=== PATIENT | male | born 1970 | race American Indian/Alaskan Native ===

== ENCOUNTER 2020-03-18 09:37 | Outpatient (CLI) | payer OTHER, SELFPAY ==
[2020-03-18 09:47] LABS: Basophils Absolute Auto 0.04 K/mm3 (0.00-0.10); Basophils Percent Auto 0.6 % (0.0-1.0); Eosinophils Absolute Auto 0.24 K/mm3 (0.02-0.50); Eosinophils Percent Auto 3.5 % (1.0-6.0); Hematocrit 45.7 % (40.0-54.0); Hemoglobin 15.8 g/dL (14.0-18.0); Immature Granulocyte Absolute 0.03 K/mm3 (0.00-0.00); Immature Granulocyte Percent A 0.4 % (0.0-0.0); Lymphocytes Absolute Auto 3.22 K/mm3 (1.10-4.50); Lymphocytes Percent Auto 46.9 % (18.0-42.0); Mean Corpuscular HGB Conc 34.6 g/dL (32.0-36.0); Mean Corpuscular Hemoglobin 29.4 pg (27.0-31.0); Mean Corpuscular Volume 85.1 fL (78.0-102.0); Mean Platelet Volume 9.7 fl (8.7-11.0); Monocytes Absolute Auto 0.49 K/mm3 (0.10-0.90); Monocytes Percent Auto 7.1 % (2.0-11.0); Neutrophils Absolute Auto 2.9 K/mm3 (1.7-7.2); Neutrophils Percent Auto 41.5 % (50.0-70.0); Platelet Count Result 213 K/mm3 (150-420); Red Blood Count 5.37 M/mm3 (4.70-6.10); Red Cell Distribution Width 12.1 % (11.6-14.4); White Blood Count 6.9 K/mm3 (4.8-10.8)
[2020-03-18 10:43] LABS: Alanine Aminotransferase 26 U/L (16-63); Albumin Level 3.8 g/dL (3.4-5.0); Alkaline Phosphatase 50 U/L (46-116); Anion Gap 12.2 mmol/L (7-16); Aspartate Amino Transferase 18 U/L (15-37); Bilirubin,Total 0.4 mg/dL (0.00-1.00); Blood Urea Nitrogen 15 mg/dL (7-18); Calcium 8.7 mg/dL (8.5-10.1); Carbon Dioxide 30 mmol/L (21-32); Chloride 106 mmol/L (98-108); Cholesterol 219 mg/dL (0-200); Estimated Glomerular Filt Rate > 60; Glucose 93 mg/dL (70-99); HDL Direct 43 mg/dL (40-60); LDL Cholesterol Calculated 152 mg/dL (<130); Osmolality Calculated 298 mOsm/kg (285-295); Potassium 4.2 mmol/L (3.5-5.1); Sodium 144 mmol/L (136-145); Total Protein 7.2 g/dL (6.4-8.2); Triglycerides 122 mg/dL (0-150)
== END 2020-03-18 09:38 | disposition home or self-care (01) ==
LOC: CHSLAB 09:40
PROVIDERS: PCP Nurse Practitioner Family; Visit Provider Nurse Practitioner Family
DX: Z00.00 Encounter for general adult medical examination without abnormal findings (principal); I10 Essential (primary) hypertension
CPT/HCPCS: 36415; 80053; 80061; 85025

== ENCOUNTER 2022-01-23 23:43 | Emergency (ER) | payer OTHER, SELFPAY ==
--- NOTE | ~2022-01-23 | CT_ITS ---
EXAMINATION: CTA chest PE protocol DATE: 01/24/2022 09:22 CDT INDICATION: Sternal chest pain. Elevated d-dimer. TECHNIQUE: Computed tomographic angiography (CTA) of the chest was performed with 100 mL Omnipaque-35 0 intravenous contrast. The dose-length product was 1055.75 mGy-cm. Maximum intensity projection 3D-r econstructions of the aorta and other arteries were constructed by the technologist on a separate wor kstation. COMPARISON: Chest x-ray dated 01/23/2021. FINDINGS: Study is technically adequate without evidence for pulmonary embolism. No thoracic lymphade nopathy. No significant pleural or pericardial effusion. Heart size normal. Gallstones are present. O therwise, upper abdomen is unremarkable. No endobronchial lesions. No pneumothorax. No focal airspace consolidation. IMPRESSION: 1. No acute cardiopulmonary disease. 2: No evidence for pulmonary embolism. 3: Cholelithiasis. Reviewed, dictated and finalized at location A.
--- NOTE | ~2022-01-23 | XR_ITS ---
EXAMINATION: XR chest 2V 01/24/2022 00:03 INDICATION: Sternal chest pain. Elevated d-dimer. PROCEDURE: 2 view chest COMPARISON: 01/10/2012 FINDINGS: The lungs are clear. The cardiomediastinal silhouette is within normal limits. There are no pleural effusions. There is no pneumothorax suspected. IMPRESSION: 1: NO ACUTE CARDIOPULMONARY DISEASE. Reviewed, dictated and finalized at location A.
[2022-01-23 23:48] VITALS: BP 163/101; PULSE 74; RESP 18; TEMP 36.3; O2SAT 99
--- NOTE | 2022-01-23 23:50 | ECG_ITS ---
Measurements Intervals [place] Rate: 74 P: 49 RI: 158 QRS: -24 QRSD: 121 T: 30 QT: 419 QTc: 466 Interpretive Statements SINUS RHYTHM WITH FREQUENT VENTRICULAR PREMATURE COMPLEXES LEFT ANTERIOR FASCICULAR BLOCK MODERATE INTRAVENTRICULAR CONDUCTION DELAY [110+ ms QRS DURATION] ABNORMAL ECG NO PREVIOUS ECG AVAILABLE FOR COMPARISON Electronically Signed On 01-24-2022 12:36:00 CDT by Nav Olivares M.D.
[2022-01-23 23:53] VITALS: PULSE 61
--- NOTE | 2022-01-24 00:01 | PC.NURSE ---
Pt to XRAY via stretcher at this time.
[2022-01-24 00:12] LABS: Basophils Percent Auto 0.4 % (0.2-1.2); Eosinophils Absolute Auto 0.1 K/mm3 (0-0.3); Eosinophils Percent Auto 1.4 % (0-4.4); Hematocrit 45.5 % (42.0-52.0); Hemoglobin 15.5 g/dL (14.0-18.0); Immature Granulocyte Absolute 0.04 K/mm3 (0.00-0.031); Immature Granulocyte Percent A 0.4 % (0-0.5); Lymphocytes Absolute Auto 5.11 K/mm3 (0.9-3.2); Lymphocytes Percent Auto 50.6 % (18.3-44.2); Mean Corpuscular HGB Conc 34.1 g/dl (32-36); Mean Corpuscular Hemoglobin 29.5 pg (26-34); Mean Corpuscular Volume 86.7 fl (80-100); Mean Platelet Volume 9.9 fl (7.4-10.4); Monocytes Absolute Auto 0.6 K/mm3 (0.1-0.6); Monocytes Percent Auto 6.3 % (2.6-8.5); Neutrophils Absolute Auto 4.1 K/mm3 (1.3-6.7); Neutrophils Percent Auto 40.9 % (45.5-73.1); Platelet Count Result 244 k/mm3 (150-375); Red Blood Count 5.25 M/mm3 (4.6-6.20); Red Cell Distribution Width 12.9 % (11.5-14.5); White Blood Count 10.1 K/mm3 (4.5-10.0)
[2022-01-24 00:17] LABS: Potassium 3.4 mmol/L (3.4-5.0)
[2022-01-24 00:22] LABS: Prothrombin Time 13.2 Seconds (11.1-14.7)
[2022-01-24 00:23] LABS: Partial Thromboplastin Time 27.5 SECONDS (22.3-36.8)
[2022-01-24 00:29] LABS: Troponin I 0.013 ng/mL (0.000-0.034)
[2022-01-24 00:34] LABS: Alanine Aminotransferase 21 U/L (4-50); Albumin Level 4.4 g/dL (3.5-5.1); Alkaline Phosphatase 54 U/L (38-126); Anion Gap 8 mmol/L (8-16); Aspartate Amino Transferase 31 U/L (17-59); Bilirubin,Total 0.4 mg/dL (0.2-1.3); Blood Urea Nitrogen 21 mg/dL (9-20); Calcium 9.1 mg/dL (8.4-10.2); Carbon Dioxide 29 mmol/L (22-30); Chloride 103 mmol/L (98-107); Estimated CRCL calculation 95 ml/min; Estimated Glomerular Filt Rate > 60; Glucose 103 mg/dL (65-110); Lipase 176 U/L (23-300); Sodium 140 mmol/L (137-145)
--- NOTE | 2022-01-24 00:41 | ED.CHESTPAIN ---
HPI - Chest Pain General Chief Complaint: Chest Pain <Lisa Woodall PA-C - Last Filed: 01/24/22 03:45> Stated Complaint: Chest pain, dizziness, headache <Lisa Woodall PA-C - Last Filed: 01/24/22 03:45> Time Seen by Provider: 01/24/22 00:02 <Lisa Woodall PA-C - Last Filed: 01/24/22 03:45> Source: patient <ELI Gaytan Last Filed: 01/24/22 03:45> Mode of arrival: ambulatory <ELI Gaytan Last Filed: 01/24/22 03:45> Limitations: no limitations <ELI Gaytan Last Filed: 01/24/22 03:45> History of Present Illness HPI narrative: Patient is a 51-year-old male, with PMHx of AFIB, HTN, HLD, who presents to the ED with report of chest pain. Patient reports he has had intermittent episodes of mild lightheadedness since Tuesday, 01/22. He describes these as brief episodes, lasting seconds before resolving. No room spinning dizziness, otalgia, tinnitus, vision changes. Patient then developed chest pain around 5:30 PM last night. He describes this as a pressure in his midsternal chest, radiating into his left-sided chest and around to his back. His pain is still present currently in the ED bed, but is very mild in severity. He also reports having occasional headaches and intermittent palpitations, described as though his heart is skipping a beat. He denies any shortness of breath, nausea, vomiting, abdominal pain, cough, fever, chills, weakness, BLE pain or edema. Patient is a history of atrial fibrillation, which was diagnosed in 2009. He states he improved his health at that time and was eventually taken off his diltiazem. This was restarted around 3 months ago @ 120mg ER daily. His riffler tender is Dr. Fallon. He is not on any anticoagulation. He does take an ASA 81mg daily. <ELI Gaytan Last Filed: 01/24/22 03:45> Related Data Home Medications: Home Medications Medication Instructions Recorded Confirmed aspirin 81 mg tablet,delayed 81 mg PO DAILY 11/24/21 release diltiazem HCl 120 mg 120 mg PO DAILY 11/24/21 capsule,extended release 24 hr losartan 50 mg tablet 50 mg PO DAILY 11/24/21 <Lisa Woodall PA-C - Last Filed: 01/24/22 03:45> Allergies/Adverse Reactions: Allergies Allergy/AdvReac Type Severity Reaction Status Date / Time No Known Allergies Allergy Verified 01/23/21 12:51 <Lisa Woodall PA-C - Last Filed: 01/24/22 03:45> Review of Systems Review of Systems: CONSTITUTIONAL: Denies fever, chills, or sweats. EYES: Denies visual changes. ENT: Denies congestion, tinnitus, or otalgia. CARDIOVASCULAR: Reports chest pain and palpitations. Denies BLE edema. RESPIRATORY: Denies cough or dyspnea. GASTROINTESTINAL: Denies abdominal pain, nausea, vomiting, or diarrhea. MUSCULOSKELETAL: Reports back pain. Denies joint pain, BLE pain, or myalgia. NEUROLOGIC: Reports lightheadedness, headache. Denies numbness, or weakness. <Lisa Woodall PA-C - Last Filed: 01/24/22 03:45> All systems reviewed & are unremarkable except as noted in HPI and below <Lisa Woodall PA-C - Last Filed: 01/24/22 03:45> [facility] Past Medical History Medical History: Medical History Atrial fibrillation Body mass index (BMI) of 37.0 to 37.9 in adult History of being hospitalized x3 days atrial fibrillation HTN (hypertension) Hyperlipidemia <Lisa Woodall PA-C - Last Filed: 01/24/22 03:45> Surgical History Surgical History: Surgical History History of torn meniscus of right knee 2012 <Lisa Woodall PA-C - Last Filed: 01/24/22 03:45> Family History Family History: Family History (System 01/23/21 @ 12:51 by Alix Cook) Mother Glaucoma <Lisa Woodall PA-C - Last Filed: 01/24/22 03:45> Social History Social History: Social History
[2022-01-24 01:02] VITALS: BP 153/87; PULSE 61; RESP 20; O2SAT 98
[2022-01-24 01:12] LABS: D Dimer 0.86 ug/mL (<0.48)
[2022-01-24 02:25] VITALS: BP 150/102; PULSE 68; RESP 18; O2SAT 99
[2022-01-24 03:17] LABS: Troponin I < 0.012 ng/mL (0.000-0.034)
== END 2022-01-24 03:52 | disposition home or self-care (01) ==
PROVIDERS: Physician Assistant; Emergency Provider Emergency Medicine; PCP Nurse Practitioner Family
DX: R07.89 Other chest pain (principal); I49.3 Ventricular premature depolarization; I48.91 Unspecified atrial fibrillation; I10 Essential (primary) hypertension; E78.5 Hyperlipidemia, unspecified
CPT/HCPCS: 36415; 71046; 71275; 80053; 83690; 84484; 85025; 85380; 85610; 85730; 93005; 99284; Q9967

== ENCOUNTER 2022-12-07 03:43 | Emergency (ER) | payer OTHER, SELFPAY ==
[2022-12-07] VITALS (10 sets, daily range): BP systolic 162–163; BP diastolic 79–96; PULSE 61–86; RESP 13–22; TEMP 36.1; O2SAT 92–98
--- NOTE | ~2022-12-07 | CT_ITS ---
EXAMINATION: CT abdomen pelvis w con DATE: 12/07/2022 05:36 INDICATION: Upper abdominal pain radiating to the back. TECHNIQUE: Computed tomography (CT) of the abdomen and pelvis was performed with 100 mL Omnipaque 350 intravenous contrast. Automated exposure control and iterative reconstruction technique were employe d. The dose-length product was 1522.94 mGy-cm. COMPARISON: Chest CT 01/24/2022 FINDINGS: The visualized portions of the lung bases are clear without pneumonia or pleural effusion. The heart size is normal. No pericardial effusion. The liver and spleen are normal. The gallbladder i s normal in size and contains gallstones. The pancreas, adrenal glands, and left kidney normal. There is an 8 mm cyst in right kidney. The prostate is mildly enlarged. There is diverticulosis of the col on without evidence of diverticulitis. There are no dilated loops of bowel. The appendix is normal. T here are no pathologically enlarged lymph nodes. There is no free intraperitoneal fluid. There is mil d thoracolumbar spondylosis. IMPRESSION: 1. Cholelithiasis. No evidence of acute cholecystitis. Reviewed, dictated and finalized at location A. UNT DEVELOPMENT MANAGER
--- NOTE | 2022-12-07 03:59 | ED.ABDPAIN ---
HPI - Abdominal Pain General Chief Complaint: Abdominal Pain Stated Complaint: abd pain Time Seen by Provider: 12/07/22 03:53 History of Present Illness HPI narrative: Patient is a 52-year-old male presenting with abdominal pain. Patient states that he awoke from sleep with what felt like severe gas pain. Patient was able to have a normal bowel movement but the pain continued so he came in for evaluation. Currently, the patient states that the pain has significantly improved. States it is down to a 2 or 3. Declines pain medication at this time. He denies nausea or vomiting. Denies fevers or chills, headache, chest pain, shortness of breath, palpitations, diarrhea, dysuria, hematuria, flank pain. Related Data Home Medications Medication Instructions Recorded Confirmed aspirin 81 mg tablet,delayed 81 mg PO DAILY 11/24/21 12/08/22 release diltiazem HCl 120 mg 120 mg PO DAILY 11/24/21 12/08/22 capsule,extended release 24 hr Allergies Allergy/AdvReac Type Severity Reaction Status Date / Time No Known Allergies Allergy Verified 12/08/22 14:23 Review of Systems Review of Systems: All systems reviewed & are unremarkable except as noted in HPI and below PMFSH Past Medical History Medical History Atrial fibrillation Body mass index (BMI) of 37.0 to 37.9 in adult History of being hospitalized x3 days atrial fibrillation HTN (hypertension) Hyperlipidemia Surgical History Surgical History History of torn meniscus of right knee 2013 Family History Family History Mother Glaucoma Social History Social History Smoking status: Never smoker Tobacco type: cigarettes Alcohol intake: current Drinks per week: 1 Substance use: never Substance use type: does not use Living arrangements: with family Exam Narrative: GENERAL: Well-appearing, well-nourished, and in no acute distress. HEAD: Normocephalic, atraumatic. EYES: PERRLA and EOMI. ENT: Nares clear, no rhinorrhea or epistaxis. Mucous membranes moist. NECK: Supple. CHEST: Clear to auscultation. No respiratory distress. HEART: Regular rate and rhythm. No murmur heard. Normal peripheral pulses. ABDOMEN: Soft, nontender, nondistended, no abdominal tenderness even with deep palpation, no guarding or rebound EXTREMITIES: Normal range of motion. No edema. SKIN: Warm, dry, no rash. NEURO: No focal deficits. Alert and oriented x3. PSYCH: Normal mood and affect. Course Vital Signs Vital signs: Vital Signs Temperature 97.0 F L 12/07/22 03:44 Pulse Rate 69 12/07/22 03:44 Respiratory Rate 16 12/07/22 03:44 Blood Pressure 162/79 H 12/07/22 03:44 Pulse Oximetry 98 12/07/22 03:44 Oxygen Delivery Room Air 12/07/22 03:44 Temperature 97.0 F L 12/07/22 03:44 Pulse Rate 61 12/07/22 06:37 Respiratory Rate 13 12/07/22 06:37 Blood Pressure 163/96 H 12/07/22 05:15 Pulse Oximetry 96 12/07/22 06:37 Oxygen Delivery Room Air 12/07/22 03:44 MDM - Abdominal Pain MDM Narrative Medical decision making narrative: Patient is a 52-year-old male presenting with abdominal pain. Patient is hypertensive, though his vitals are within normal limits. Exam is remarkable for the above. Given the absence of any tenderness on exam, we will start with labs, fluids, Pepcid. Blood work with mild transaminitis so CT abdomen pelvis was obtained. It shows gallstones but no evidence of cholecystitis. Discussed the work-up with the patient. Advised following up with surgery. Appropriate return precautions given. Patient voiced understanding and is agreeable with plan. Discharged in stable condition. Differential Diagnosis Differential diagnosis: Likely abdominal pain, constipation, diverticulitis, gastroent
[2022-12-07] MEDS: SODIUM CHLORIDE 0.9% IV 1,000 ML 999 ML IV CONT (04:38)
[2022-12-07] MEDS: FAMOTIDINE 20 MG/2 ML VIAL IV PUSH (04:38)
[2022-12-07 04:48] LABS: Basophils Absolute Auto 0.1 K/mm3 (0.0-0.1); Basophils Percent Auto 0.5 % (0.2-1.2); Eosinophils Absolute Auto 0.2 K/mm3 (0-0.3); Eosinophils Percent Auto 1.9 % (0-4.4); Hematocrit 45.4 % (42.0-52.0); Hemoglobin 15.7 g/dL (14.0-18.0); Immature Granulocyte Absolute 0.06 K/mm3 (0.00-0.031); Immature Granulocyte Percent A 0.6 % (0-0.5); Lymphocytes Absolute Auto 2.99 K/mm3 (0.9-3.2); Lymphocytes Percent Auto 29.9 % (18.3-44.2); Mean Corpuscular HGB Conc 34.6 g/dl (32-36); Mean Corpuscular Hemoglobin 29.9 pg (26-34); Mean Corpuscular Volume 86.5 fl (80-100); Mean Platelet Volume 9.8 fl (7.4-10.4); Monocytes Absolute Auto 0.6 K/mm3 (0.1-0.6); Monocytes Percent Auto 6.1 % (2.6-8.5); Neutrophils Absolute Auto 6.1 K/mm3 (1.3-6.7); Platelet Count Result 242 k/mm3 (150-375); Red Blood Count 5.25 M/mm3 (4.6-6.20); Red Cell Distribution Width 12.8 % (11.5-14.5)
[2022-12-07 04:54] LABS: Appearance Urine Clear (Clear); Bilirubin Urine Negative (Negative); Blood Urine Negative (Negative); Color Urine Yellow (Yellow); Glucose Urine UA Negative (Negative); Ketones Urine Negative (Negative); Leukocyte Esterase Ur Negative LEU/UL (Negative); Nitrate Urine Negative (Negative); Protein Urine Negative (Negative); Specific Grav Ur 1.025 (1.001-1.035); Urobilinogen Urine 0.2 mg/dL (<2.0); pH Urine 5.5 (5.0-9.0)
[2022-12-07 04:55] LABS: Add Urine Microscopic? NO
[2022-12-07 04:58] LABS: Alanine Aminotransferase 106 U/L (6-50); Albumin Level 4.2 g/dL (3.5-5.1); Alkaline Phosphatase 57 U/L (38-126); Anion Gap 5 mmol/L (8-16); Aspartate Amino Transferase 181 U/L (17-59); Bilirubin,Total 0.8 mg/dL (0.2-1.3); Blood Urea Nitrogen 28 mg/dL (9-20); Calcium 8.9 mg/dL (8.4-10.2); Carbon Dioxide 32 mmol/L (22-30); Chloride 103 mmol/L (98-107); Estimated CRCL calculation 111 ml/min; Estimated Glomerular Filt Rate > 60; Glucose 108 mg/dL (65-110); Lipase 271 U/L (23-300); Potassium 3.4 mmol/L (3.4-5.0); Sodium 140 mmol/L (137-145)
== END 2022-12-07 06:56 | disposition home or self-care (01) ==
PROVIDERS: Emergency Provider Emergency Medicine; PCP Emergency Medicine
DX: K80.20 Calculus of gallbladder without cholecystitis without obstruction (principal); I48.91 Unspecified atrial fibrillation; I10 Essential (primary) hypertension; E78.5 Hyperlipidemia, unspecified; Z79.82 Long term (current) use of aspirin
CPT/HCPCS: 36415; 74177; 80053; 81003; 83690; 85025; 96361; 96365; 96375; 99284; J0131; J7030; Q9967

== ENCOUNTER 2022-12-15 12:25 | Outpatient (CLI) | payer OTHER, SELFPAY ==
[2022-12-15 12:39] LABS: Basophils Absolute Auto 0.03 K/mm3 (0.00-0.10); Basophils Percent Auto 0.5 % (0.0-1.0); Eosinophils Absolute Auto 0.14 K/mm3 (0.02-0.50); Eosinophils Percent Auto 2.2 % (1.0-6.0); Hematocrit 45.8 % (40.0-54.0); Hemoglobin 15.4 g/dL (14.0-18.0); Immature Granulocyte Absolute 0.01 K/mm3 (0.00-0.00); Immature Granulocyte Percent A 0.2 % (0.0-0.0); Mean Corpuscular HGB Conc 33.6 g/dL (32.0-36.0); Mean Corpuscular Hemoglobin 29.6 pg (27.0-31.0); Mean Corpuscular Volume 87.9 fL (78.0-102.0); Mean Platelet Volume 9.6 fl (8.7-11.0); Monocytes Absolute Auto 0.51 K/mm3 (0.10-0.90); Neutrophils Absolute Auto 2.4 K/mm3 (1.7-7.2); Neutrophils Percent Auto 37.1 % (50.0-70.0); Platelet Count Result 274 K/mm3 (150-420); Red Blood Count 5.21 M/mm3 (4.70-6.10); Red Cell Distribution Width 12.5 % (11.6-14.4); White Blood Count 6.4 K/mm3 (4.8-10.8)
[2022-12-15 13:20] LABS: Alanine Aminotransferase 61 U/L (16-63); Alkaline Phosphatase 53 U/L (46-116); Anion Gap 3 mmol/L (8-16); Aspartate Amino Transferase 19 U/L (15-37); Bilirubin,Total 0.6 mg/dL (0.00-1.00); Blood Urea Nitrogen 16 mg/dL (7-18); Carbon Dioxide 35 mmol/L (21-32); Chloride 104 mmol/L (98-108); Cholesterol 187 mg/dL (0-200); Estimated Glomerular Filt Rate > 60; Glucose 91 mg/dL (70-99); HDL Direct 43 mg/dL (40-60); LDL Cholesterol Calculated 126 mg/dL (<130); Lipase 53 U/L (16-77); Osmolality Calculated 295 mOsm/kg (285-295); Potassium 4.5 mmol/L (3.5-5.1); Sodium 142 mmol/L (136-145); Total Protein 7.5 g/dL (6.4-8.2); Triglycerides 88 mg/dL (0-150)
== END 2022-12-15 12:26 | disposition home or self-care (01) ==
LOC: CHSLAB 12:27
PROVIDERS: PCP Nurse Practitioner Family; Visit Provider Nurse Practitioner Family
DX: I10 Essential (primary) hypertension (principal); E78.5 Hyperlipidemia, unspecified; K80.20 Calculus of gallbladder without cholecystitis without obstruction
CPT/HCPCS: 36415; 80053; 80061; 83690; 85025

== ENCOUNTER 2023-06-09 09:24 | Outpatient (CLI) | payer OTHER, SELFPAY ==
[2023-06-09 10:10] LABS: Alanine Aminotransferase 33 U/L (16-63); Albumin Level 3.7 g/dL (3.4-5.0); Alkaline Phosphatase 53 U/L (46-116); Anion Gap 8 mmol/L (8-16); Aspartate Amino Transferase < 10 U/L (15-37); Bilirubin,Total 0.5 mg/dL (0.00-1.00); Blood Urea Nitrogen 14 mg/dL (7-18); Calcium 9.1 mg/dL (8.5-10.1); Carbon Dioxide 31 mmol/L (21-32); Chloride 106 mmol/L (98-108); Cholesterol 188 mg/dL (0-200); Estimated Glomerular Filt Rate > 60; Glucose 98 mg/dL (70-99); HDL Direct 43 mg/dL (40-60); LDL Cholesterol Calculated 111 mg/dL (<130); Osmolality Calculated 300 mOsm/kg (285-295); Potassium 3.7 mmol/L (3.5-5.1); Sodium 145 mmol/L (136-145); Total Protein 7.1 g/dL (6.4-8.2); Triglycerides 168 mg/dL (0-150)
== END 2023-06-09 09:25 | disposition home or self-care (01) ==
LOC: CHSLAB 09:26
PROVIDERS: PCP Nurse Practitioner Family; Visit Provider Nurse Practitioner Family
DX: Z02.1 Encounter for pre-employment examination (principal)
CPT/HCPCS: 36415; 80053; 80061; 83036

== ENCOUNTER 2024-06-28 12:01 | Outpatient (CLI) | payer OTHER, SELFPAY ==
[2024-06-28 12:51] LABS: Alanine Aminotransferase 25 U/L (16-63); Albumin Level 3.8 g/dL (3.4-5.0); Alkaline Phosphatase 54 U/L (46-116); Anion Gap 6 mmol/L (4-12); Aspartate Amino Transferase 14 U/L (15-37); Bilirubin,Total 0.4 mg/dL (0.00-1.00); Blood Urea Nitrogen 16 mg/dL (7-18); Calcium 8.7 mg/dL (8.5-10.1); Carbon Dioxide 31 mmol/L (21-32); Chloride 107 mmol/L (98-108); Cholesterol 190 mg/dL (0-200); Estimated Glomerular Filt Rate > 60; Glucose 96 mg/dL (70-99); HDL Direct 46 mg/dL (40-60); LDL Cholesterol Calculated 125 mg/dL (<130); Osmolality Calculated 299 mOsm/kg (285-295); Potassium 4.1 mmol/L (3.5-5.1); Sodium 144 mmol/L (136-145); Total Protein 7.1 g/dL (6.4-8.2); Triglycerides 95 mg/dL (0-150)
== END 2024-06-28 12:02 | disposition home or self-care (01) ==
LOC: CHSLAB 12:04
PROVIDERS: PCP Family Medicine; Visit Provider Family Medicine
DX: E78.5 Hyperlipidemia, unspecified (principal)
CPT/HCPCS: 36415; 80053; 80061

== ENCOUNTER 2024-07-02 08:43 | Outpatient (CLI) | payer OTHER, SELFPAY ==
--- NOTE | ~2024-07-02 | US_ITS ---
Limited Abdominal Sonogram: Real-time sonographic imaging of the right upper quadrant was performed. Clinical History: Cholelithiasis Findings: The liver appears normal with no evidence of mass lesion or bile duct dilatation. Main por tayo vein demonstrates normal direction of flow. The gallbladder is well distended, and images echogen ic, shadowing gallstones. Gallbladder wall is thickened to 6 mm. The common bile duct measures 10 mm. The visualized pancreas, aorta, and IVC are unremarkable. Impression: Cholelithiasis with gallbladder wall thickening. Correlate for acute cholecystitis. Consider HIDA sca n as indicated. Dilated common bile duct, nonspecific. Consider MRCP as indicated. Reviewed, dictated and finalized at location M. Impression: Cholelithiasis with gallbladder wall thickening. Correlate for acute cholecysti tis. Consider HIDA scan as indicated. Dilated common bile duct, nonspecific. Consider MRCP as indicated.
== END 2024-07-02 08:44 | disposition home or self-care (01) ==
LOC: CHSIMG 08:44
PROVIDERS: PCP Nurse Practitioner Family; Visit Provider Family Medicine
DX: K80.20 Calculus of gallbladder without cholecystitis without obstruction (principal); R93.89 Abnormal findings on diagnostic imaging of other specified body structures
CPT/HCPCS: 76705

== ENCOUNTER 2024-07-13 10:23 | Outpatient (CLI) | payer OTHER, SELFPAY ==
--- NOTE | 2024-07-13 10:37 | ECG_ITS ---
Test Date: 2024-07-13 11:02:01 Measurements Intervals [place] Rate: 66 P: 28 CA: 165 QRS: -33 QRSD: 122 T: 25 QT: 430 QTc: 452 Interpretive Statements SINUS RHYTHM LEFT AXIS DEVIATION INTRAVENTRICULAR CONDUCTION DELAY POOR R WAVE PROGRESSION BORDERLINE T WAVE ABNORMALITY- INFERIOR LEADS BASELINE ARTIFACT- I, III, AVR, AVL, AVF BORDERLINE ECG No previous ECG available for comparison Electronically Signed On 07-13-2024 11:43:25 CDT by Christiano Simpson D.O.
[2024-07-13 12:18] LABS: Alanine Aminotransferase 18 U/L (6-50); Albumin Level 4.2 g/dL (3.5-5.1); Alkaline Phosphatase 45 U/L (38-126); Amylase 68 U/L (30-110); Aspartate Amino Transferase 21 U/L (17-59); Bilirubin,Total 0.5 mg/dL (0.2-1.3); Lipase 132 U/L (23-300)
== END 2024-07-13 10:24 | disposition home or self-care (01) ==
PROVIDERS: PCP Nurse Practitioner Family; Visit Provider Surgery
DX: Z01.818 Encounter for other preprocedural examination (principal); K80.10 Calculus of gallbladder with chronic cholecystitis without obstruction; I10 Essential (primary) hypertension
CPT/HCPCS: 36415; 80076; 82150; 83690; 93005

== ENCOUNTER 2024-07-19 01:33 | Day surgery (SDC) | payer OTHER, SELFPAY ==
[2024-07-12 09:46] VITALS: BMI 36.0
--- NOTE | 2024-07-12 09:58 | SUR.PREOP ---
Report to the Outpatient Waiting Room, entrance under the green pavilion located off [facility], at time 0700 on date 07/19/2024. Planned Procedure Time: 0900.? Time changes happen often and if your time is changed the preop area will call you the afternoon before. - You and your visitor will be asked to self-screen and do not enter if you have any COVID symptoms. Please call surgeon if you need to reschedule. - A mask is optional within the hospital at this time. Patients may have clear liquids (water, carbonated beverages, clear teas, apple juice) until 3 hours prior to surgery with a maximum of 20 ounces. - No food from midnight until time of surgery and no smoking - Infants may have breast milk until 4 hours before surgery, formula 6 hours prior to surgery. - Children will be allowed to drink immediately following surgery.? If applicable, please bring a bottle or sippy cup to assist with drinking. Juice, water, soda, and popsicles are readily available.? For infants on formula, please bring formula the day of surgery.? Pacifiers are allowed. Take only the following medications with a SIP of water on the morning of surgery: N/A DO NOT STOP ANY OF YOUR OTHER PRESCRIPTION MEDICATIONS PRIOR TO SURGERY EXCEPT THE FOLLOWING Medications to discontinue per physician Vitamins- 3 days Date to take last dose 07/16/2024 Please no make-up, nail ukrainian, hairspray, perfume, deodorant, or body powder the day of surgery.? No jewelry (including any body piercings) or valuables the day of surgery, leave them at home.? Please take a shower or bath the night before, or the morning of, surgery with an antibacterial soap.? Wear comfortable, loose fitting clothing.? Children are encouraged to wear pajamas. - Jewelry must be removed prior to entering the operating room.? Rings and piercings that are not removed may be cut off. - The hospital will not accept responsibility for valuables.? - Please leave all valuables, including medications, at home the day of surgery. If you are going home after surgery, a licensed bookmobile driver must drive you home.? - NO public transportation without another adult if you receive anesthesia. - We recommend that an adult stay with you for 24 hours following discharge. - We also recommend that you do not drive, make important decision, drink alcoholic beverages, or take any drugs that were not prescribed by your health care provider for at least 24 hours after your discharge time. Follow any additional instructions given to you from your surgeon. Telephone instructions given to patient and asked if any additional questions and then verbalized understanding. Patient advised to call surgeon office or pre surgery nurse liaison [phone] if any additional questions.
[2024-07-19] VITALS (8 sets, daily range): BP systolic 107–175; BP diastolic 49–99; PULSE 52–68; RESP 12–18; TEMP 36.3–36.5; O2SAT 96–100; BMI 37.3
--- NOTE | 2024-07-19 07:23 | WPDHPUPDATE1 ---
History and Physical Update Update Date/Time: 07/19/24 07:23 History and Physical has been reviewed, including an updated exam of the patient. There are NO changes in the patient's condition. Risks, benefits, and alternatives have been discussed and questions answered. Patient agrees to proceed with procedure.
[2024-07-19] MEDS: LACTATED RINGERS 1,000 ML 30 ML IV CONT ×2 (08:15→12:41)
[2024-07-19] MEDS: INDOCYANINE GREEN 25 MG VIAL WITH DILUENT 3.75 MG IV PUSH (08:16)
[2024-07-19] MEDS: ACETAMINOPHEN 500 MG TABLET 1000 MG PO (08:19)
[2024-07-19] MEDS: KETOROLAC 15 MG/ML VIAL (*BKC) IV PUSH (08:20)
--- NOTE | 2024-07-19 08:50 | WPDANESEPPF ---
Anes - Initial Pre Proc Eval Procedure: Operation Date: 07/19/24 09:30 Proposed Procedures p Robotic Assisted Cholecystectomy - Renetta Haynes MD Date/Time: 07/19/24 08:50 Surgeon: Renetta Haynes MD Pre Op Diagnosis: chronic calculus cholecystitis Patient Data Age: 53 Gender: M Height: 1.88 m Weight: 132 kg Last Vital Signs Temp 36.3 C L 07/19/24 07:25 Pulse 68 07/19/24 07:25 Resp 18 07/19/24 07:25 BP 175/99 H 07/19/24 07:25 Pulse Ox 99 07/19/24 07:25 O2 Del Method Room Air 07/19/24 07:25 Allergies Allergy/AdvReac Type Severity Reaction Status Date / Time No Known Allergies Allergy Verified 07/19/24 08:40 Home Medications Medication Instructions Recorded Confirmed Type aspirin 81 mg tablet,delayed 81 mg PO DAILY 11/24/21 07/12/24 History release diltiazem HCl 120 mg 120 mg PO DAILY 11/24/21 07/12/24 History capsule,extended release 24 hr lisinopril 10 mg tablet 10 mg PO DAILY 06/28/24 07/12/24 History Adults Multivitamin See Rx Instructions .Route .COMPLEX 07/12/24 07/19/24 History Laboratory Tests 07/19/24 08:06 Blood Type Pending Antibody Screen Pending Patient hx anesthesia problems: none Family hx anesthesia problems: none Results Review: All pre-operative results and documents have been reviewed as part of the pre-operative evaluation. [facility] Past Medical History Medical History (Updated 07/19/24 @ 08:50 by Kristian Horton MD) Atrial fibrillation Body mass index (BMI) of 37.0 to 37.9 in adult History of being hospitalized x3 days atrial fibrillation HTN (hypertension) Hyperlipidemia EUGENE (obstructive sleep apnea) Surgical History Surgical History History of torn meniscus of right knee 2012 Family History Family History Mother Glaucoma Social History Social History Smoking status: Never smoker Tobacco type: cigarettes Alcohol intake: current Drinks per week: 1 Alcohol use details: 2 drinks per month- very infrequent Substance use: never Substance use type: does not use Do You Feel Safe in your Home?: Yes Lack of Transportation: No Lack of Food: Never True Current Housing: I Have Housing Concerned About Future Housing: No Difficulty Paying Gas/Electric Bills: No Difficulty Paying for Meds: No Currently Unemployed: No Education: Trade/Vocational Certificate Difficulty w/ Childcare or Family Care: No Living arrangements: with family Spiritual care concerns: No Anes - Eval Final PreProcedure Day of Procedure 07/19/24 08:50 Patient weight: obese Heart: regular rate and rhythm Lungs: clear to auscultation Airway: Mallampati scale class III Neurological: alert and oriented Last oral intake: >/= 8 hours ASA classification: III Emergent: no Anesthetic plan: proceed Anesthesia type and monitoring: general ETT and standard monitoring Results Review: All pre-operative results and documents have been reviewed as part of the pre-operative evaluation. Informed Consent: The patient's anesthetic plan and its attendant risks and benefits were discussed with the patient/family/POA. Questions were solicited and answers provided to the satisfaction of the patient/family/POA.
--- NOTE | 2024-07-19 09:35 | SUR.PREOP ---
0935- Notified patient and son surgery start time delayed. Patient verbalized understanding and ambulated to restroom to void and denying other needs at this time.
[2024-07-19] MEDS: ceFAZolin 3 GM/D5W 100 ML 100 ML IVPB (11:20)
[2024-07-19] MEDS: BUPIVACAINE/EPINEPHRINE 0.5% 10 ML VIAL 30 ML INFILTRATE (11:36)
--- NOTE | 2024-07-19 12:33 | W.PM.PROC2 ---
Procedure Note - Detailed Date of Procedure 07/19/24 Pre-op Diagnosis Cholecystitis with cholelithiasis Post-op Diagnosis Same Procedure Performed Robotic assisted cholecystectomy Surgeon Renetta Haynes MD Anesthesia General Indications 53-year-old male presenting to the office complaining of postprandial pain upper abdominal pain, bloating. Workup, including imaging, significant for cholecystitis, cholelithiasis. Findings acute cholecystitis with cholelithiasis Description of Procedure The patient was taken to the operating room and placed in the supine position. After adequate induction of general anesthesia, the patient was prepped and draped in the normal sterile fashion. A time-out was then done to verify the patient's identity, as well as the procedure being performed. I began by making a 8 mm incision in the periumbilical region. A Veress needle was then placed in the peritoneal cavity and CO2 gas was insufflated. After adequate pneumoperitoneum was achieved, the Veress needle was removed and a 8 mm Optiview trocar was placed under direct visualization. Once into the abdominal cavity, the introducer was removed and the laparoscope was placed through this trocar site. Under direct visualization, I placed a further 8 mm port in the left mid abdomen and 2 additional 8 mm ports in the right mid abdomen. The robot was then docked to these ports sites. I then went to the console. The gallbladder was then identified and noted to be inflamed and distended. I was able to place a grasper at the dome of the gallbladder and this was retracted up and over the liver. A 2nd retractor was used to grasp the infundibulum and retracted laterally. This allowed visualization and dissection of the triangle of Calot. There were some omental adhesions to the gallbladder and these were taken down with the cautery. I then began dissection around the triangle Calot. I first identified the cystic duct, I was able to visualize the entirety of the duct from its proximal insertion into the gallbladder to its distal junction with the common hepatic/common bile duct junction. I then used the firefly visualization at this point to confirm the anatomy. The proximal cystic duct was then further skeletonized, clipped, and transected. Next I visualized the cystic artery. Again the structure was skeletonized, clipped, and transected. I then again used firefly to confirm anatomy and no aberrant anatomy was noted. I then used the Bovie cautery to take down the peritoneal attachments of the gallbladder off the liver bed. Once the gallbladder specimen was completely detached, an Endo pouch was placed through the left 8 mm port site and the gallbladder specimen was placed in the endo-pouch and subsequently removed. Of note, I made a cholecystostomy and decompressed the gallbladder to facilitate removal. There was noted to be a large stone in the gallbladder and the incision had to be enlarged in order to remove the specimen. I then re-examined the right upper quadrant. Hemostasis was noted in the liver bed and the clips were noted to be in good position on both the duct and the artery. No other pathology was seen in the right upper quadrant. All instruments were then removed and the robot was undocked. I then closed the extraction port site under direct visualization with a Levi cone and 0 Vicryl suture. The abdomen was then desufflated and all ports were removed. All port sites were then closed with 4-0 Monocryl subcuticular suture. Dermabond was placed on each was wound. The patient tolerated the procedure well and was extubated in the operating room postop. The patient will now be transferred to the recovery room in stable condition. Estimated Blood Loss 10 Drains No Packing No Pathology Yes Complications No immediate complications Condition Stable Disposition PACU [facility] Billing Surgery - Charge Forward: Surgery Billing
[2024-07-19] MEDS: oxyCODONE HCL (*CRX) 5 MG TAB IR PO (13:52)
== END 2024-07-19 14:35 | disposition home or self-care (01) ==
PROVIDERS: PCP Nurse Practitioner Family; Visit Provider Surgery
PROC: 0FT44ZZ Resection of Gallbladder, Percutaneous Endoscopic Approach (ICD-10-PCS; CPT 47562; principal; 2024-07-19 09:30)
DX: K80.10 Calculus of gallbladder with chronic cholecystitis without obstruction (principal); I48.91 Unspecified atrial fibrillation; I10 Essential (primary) hypertension; E78.5 Hyperlipidemia, unspecified; G47.33 Obstructive sleep apnea (adult) (pediatric); E66.9 Obesity, unspecified; Z68.37 Body mass index [BMI] 37.0-37.9, adult; Z79.82 Long term (current) use of aspirin
CPT/HCPCS: 47562; 36415; 80076; 82150; 83690; 86850; 86900; 86901; 88304; 93005; A9270; J0690; J1100; J1885; J2250; J2405; J2704; J3010; J7120

== ENCOUNTER 2025-06-29 09:13 | Outpatient (CLI) | payer OTHER, SELFPAY ==
--- OUTSIDE RECORDS SUMMARY | 2003-07-26 04:30 | XMS_ITS | Continuity of Care Document ---
Author Organization [facility] Address [address] [place] [address] Exec utive [facility] [address] [place] [address] Phone Care Team Providers Care Instrumentation Chemist Name Role Phone Floyd Valencia Unavailable Unavailable Advance Directives Directive Yes / No Effective Date File Name No Information Encounters Encounter Description Practice Location Reason(s) For Visit Diagnoses Date Provider Providers Copied on Encounter [facility], [address], [place], [place], [id number], [place] tel:[phone] [facility] [place] No Information Jul- 9-200 3 Doisy Edward. [address] [facility] , [address], [place], [address], [place]. tel:[phone] Family History Family Member Type Diagnosis Age At Onset No Information Payers Payer name Insurance type Covered constitution party ID Authoriza tion(s) No Information Social History Type Description Quantity Date Captured Comments Sex Male Smoking Status No Information Chief Complaint And Reason For Visit No Information Reason For Referral Reason For Referral No Information History Of Present Illness Encounter Date Complaint History Of Prese nt Illness No Information Functional Status Date Functional Assessmen t No Information Instructions Date Instruction Additional Infor mation No Information Assessments Type Assessment Date No Information Patient Care Teams Name Effective Dates (start - stop) Status Members No Information
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
[2025-06-29 09:25] LABS: Hematocrit 46.8 % (40.0-54.0); Hemoglobin 15.9 g/dL (14.0-18.0); Immature Granulocyte Percent A 0.5 % (0.0-0.0); Lymphocytes Absolute Auto 3.27 K/mm3 (1.10-4.50); Mean Corpuscular HGB Conc 34.0 g/dL (32-36); Mean Corpuscular Hemoglobin 29.0 pg (27.0-31.0); Mean Corpuscular Volume 85.2 fL (78.0-102.0); Nucleated Red Blood Cells Absolute Auto 0.00 K/mm3 (0.00-0.00); Nucleated Red Blood Cells Perc 0.0 % (0-0.0); Platelet Count Result 265 K/mm3 (150-420); Red Blood Count 5.49 M/mm3 (4.70-6.10); White Blood Count 7.9 K/mm3 (4.8-10.8)
[2025-06-29 09:40] LABS: Hemoglobin A1C 5.3 % (<5.7)
[2025-06-29 10:27] LABS: Alanine Aminotransferase 20 U/L (6-50); Albumin Level 4.4 g/dL (3.5-5.1); Alkaline Phosphatase 61 U/L (38-126); Anion Gap 7 mmol/L (4-12); Aspartate Amino Transferase 23 U/L (17-59); Bilirubin,Total 0.8 mg/dL (0.2-1.3); Blood Urea Nitrogen 16 mg/dL (9-20); Calcium 9.6 mg/dL (8.4-10.2); Carbon Dioxide 29 mmol/L (22-30); Chloride 106 mmol/L (98-107); Cholesterol 200 mg/dL (0-200); Estimated Glomerular Filt Rate > 60; Glucose 94 mg/dL (65-110); HDL Direct 43 mg/dL; Osmolality Calculated 295 mOsm/kg (285-295); Potassium 4.1 mmol/L (3.4-5.0); Sodium 142 mmol/L (137-145); Total Protein 7.3 g/dL (6.3-8.2); Triglycerides 138 mg/dL (<150)
[2025-06-29 10:58] LABS: Thyroid Stimulating Hormone Reflex 0.681 uIU/mL (0.465-4.68)
== END 2025-06-29 09:14 | disposition home or self-care (01) ==
LOC: CHSLAB 09:14
PROVIDERS: PCP Nurse Practitioner Family; Visit Provider Nurse Practitioner Family
DX: Z00.00 Encounter for general adult medical examination without abnormal findings (principal)
CPT/HCPCS: 36415; 80053; 80061; 83036; 84443; 85025